=== PATIENT | male | born 1975 | race Hispanic/Latino ===

== ENCOUNTER 2019-03-27 23:58 | Emergency (ER) | payer SELFPAY ==
--- NOTE | 2019-03-28 01:12 | Emergency Department Report ---
ED General Adult HPI - General Chief complaint: Eye Problems Stated complaint: VISION PROBLEMS TROUBLE SWALLING BP Time Seen by Provider: 03/28/19 01:02 Source: patient Mode of arrival: Ambulatory Limitations: No Limitations - History of Present Illness Initial comments: Patient is 43 years old male with history of hypertension, on lisinopril 10 mg. Patient presented to the ER, accompanied by his . The patient stated that he had an episode of blurry vision happened tonight. he stated that for the last 2 weeks he has been complaining of generalized weakness, headache neck pain chest pain and shortness of breath. Patient denied any fever or chills. Patient found to have a blood pressure of 183/124 in triage. Patient currently denying any focal weakness, numbness or tingling sensation. Patient stated that sometimes he'll get very dizzy. - Related Data Allergies Allergy/AdvReac Type Severity Reaction Status Date / Time No Known Allergies Allergy Verified 03/28/19 00:11 ED Review of Systems ROS: Stated complaint: VISION PROBLEMS TROUBLE SWALLING BP Other details as noted in HPI Comment: All other systems reviewed and negative Constitutional: denies: chills, fever Respiratory: shortness of breath, SOB with exertion. denies: cough, orthopnea, SOB at rest Cardiovascular: chest pain. denies: palpitations Gastrointestinal: denies: abdominal pain, nausea, vomiting Musculoskeletal: denies: back pain ED Past Medical Hx - Past Medical History Previous Medical History?: Yes Hx Hypertension: Yes - Surgical History Past Surgical History?: No - Social History Smoking Status: Current Every Day Smoker Substance Use Type: Alcohol ED Physical Exam - General Limitations: No Limitations General appearance: alert, in no apparent distress - Head Head exam: Present: atraumatic, normocephalic, normal inspection - Eye Eye exam: Present: normal appearance, PERRL - ENT ENT exam: Present: normal exam, normal orophraynx, mucous membranes moist - Neck Neck exam: Present: normal inspection, full ROM. Absent: tenderness, meningismus, lymphadenopathy, thyromegaly - Respiratory Respiratory exam: Present: normal lung sounds bilaterally - Cardiovascular Cardiovascular Exam: Present: regular rate, normal rhythm, normal heart sounds - GI/Abdominal GI/Abdominal exam: Present: soft, normal bowel sounds. Absent: distended, tenderness, guarding, rebound, rigid, organomegaly, mass, bruit, pulsatile mass, hernia - Extremities Exam Extremities exam: Present: normal inspection, full ROM, normal capillary refill. Absent: pedal edema, calf tenderness - Back Exam Back exam: Present: normal inspection, full ROM. Absent: CVA tenderness (R), CVA tenderness (L), muscle spasm, paraspinal tenderness, vertebral tenderness, rash noted - Neurological Exam Neurological exam: Present: alert, oriented X3, CN II-XII intact, normal gait, reflexes normal. Absent: motor sensory deficit - Psychiatric Psychiatric exam: Present: normal mood - Skin Skin exam: Present: warm, intact, normal color ED Course Vital Signs 03/27/19 03/27/19 03/28/19 21:27 21:30 00:05 Temperature 97.6 F Pulse Rate 56 L 58 L 116 H Respiratory 17 17 18 Rate Blood Pressure 142/67 142/67 160/100 Blood Pressure [Left] O2 Sat by Pulse 97 97 99 Oximetry 03/28/19 03/28/19 03/28/19 01:26 01:30 01:31 Temperature Pulse Rate 97 H 90 Respiratory 15 20 Rate Blood Pressure 130/73 154/103 Blood Pressure 154/103 [Left] O2 Sat by Pulse 98 98 96 Oximetry 03/28/19 03/28/19 03/28/19 01:46 02:00 02:16 Temperature Pulse Rate 90 Respiratory 19 22 Rate Blood Pressure 154/103 165/124 171/120 Blood Pressure [Left] O2 Sat by Pulse 97 97 Oximetry 03/28/19 03/28/19 03/28/19 02:30 02:46 03:00 Temperature Pulse Rate 113 H Respiratory 17 Rate Blood Pressure 171/120 171/120 147/104 Blood Pressure [Left] O2 Sat by Pulse 97 98 98 Oximetry ED Medical Decision Making - Lab Data Result diagrams: 03/28/19 01:09 03/28/19 01:09 - EKG Data -: EKG Interpreted by La - Radiology Data Radiology results: report reviewed - Medical Decision Making Patient is 43 years old male with history of hypertension, on lisinopril 10 mg. Patient presented to the ER, accompanied by his . The patient stated that he had an episode of blurry vision happened tonight. he stated that for the last 2 weeks he has been complaining of generalized weakness, headache neck pain chest pain and shortness of breath. Patient denied any fever or chills. Patient found to have a blood pressure of 183/124 in triage. Patient currently denying any focal weakness, numbness or tingling sensation. Patient stated that sometimes he'll get very dizzy. Patient received hydralazine 20 mg IV. Blood pressure significantly improved patient stated that he is feeling much better. CT brain is negative for acute finding chest x-ray is unremarkable. Labs reviewed that is unremarkable. I believe the patient's symptom is most likely due to increased blood pressure. Will increase patient lisinopril to 40 mg and add hydrochlorothiazide 25 mg. Patient was given [facility] to follow-up in the next 2-3 days and informed to return to the ER if symptoms are not improved. Critical care attestation.: If time is entered above; I have spent that time in minutes in the direct care of this critically ill patient, excluding procedure time. ED Disposition Clinical Impression: Dizziness, Malignant hypertension Disposition: DC-01 TO HOME OR SELFCARE Is pt being admited?: No Condition: Stable Instructions: Hypertension (ED) Referrals: JALIL RODAS MD [Primary Care Provider] - 3-5 Days
[2019-03-28 01:23] LABS: Basophils % (Auto) 0.5 % (0.0-1.8); Eosinophils % (Auto) 0.4 % (0.0-4.3); Hematocrit 41.2 % (35.5-45.6); Hemoglobin 14.1 gm/dl (11.8-15.2); Lymphocytes # (Auto) 2.1 K/mm3 (1.2-5.4); Lymphocytes % (Auto) 28.7 % (13.4-35.0); Mean Corpuscular HGB Conc 34 % (32-34); Mean Corpuscular Volume 90 fl (84-94); Monocytes # (Auto) 0.7 K/mm3 (0.0-0.8); Monocytes % (Auto) 10.1 % (0.0-7.3); Platelet Count 233 K/mm3 (140-440); Red Blood Count 4.56 M/mm3 (3.65-5.03); Red Cell Distribution Width 13.4 % (13.2-15.2)
[2019-03-28 01:37] LABS: Thrombin Time 16.9 Sec. (15.1-19.6)
[2019-03-28 01:44] LABS: BUN/Creatinine Ratio 14; Blood Urea Nitrogen 17 mg/dL (9-20); Calcium 8.9 mg/dL (8.4-10.2); Hemolysis Index 29
--- NOTE | 2019-03-28 01:45 | Cat Scan Report ---
CT HEAD WITHOUT CONTRAST INDICATION : Neuro deficits <6hrs or sx present upon awakening. Loss of vision for 1 hour. TECHNIQUE: Axial, coronal and sagittal CT imaging was performed from the skull apex through the skul l base without contrast. All CT scans at this location are performed using CT dose reduction for ALA RA by means of automated exposure control. COMPARISON: None available. FINDINGS: PARENCHYMA: No mass, midline shift, hemorrhage, extraaxial collection or acute territorial infarctio n. VENTRICLES: Symmetric and normal in size. SOFT TISSUES: Soft tissues including the orbits appear normal. BONES: No acute osseous abnormality. SINUSES: No significant abnormality. ADDITIONAL FINDINGS: None. IMPRESSION: No acute abnormality. Signer Name: Zachary Newton MD Signed: 03/28/2019 1:41 AM Workstation Name: [id number]
--- NOTE | 2019-03-28 01:46 | XRay Report ---
CHEST 1 VIEW 03/28/2019 1:26 AM INDICATION / CLINICAL INFORMATION: sob. COMPARISON: None available. FINDINGS: SUPPORT DEVICES: None. HEART / MEDIASTINUM: No significant abnormality. LUNGS / PLEURA: No significant pulmonary or pleural abnormality. No pneumothorax. ADDITIONAL FINDINGS: No significant additional findings. IMPRESSION: No acute findings. Signer Name: Zachary Newton MD Signed: 03/28/2019 1:41 AM Workstation Name: [id number]
[2019-03-28 01:54] LABS: Alanine Aminotransferase 26 units/L (7-56); Albumin 4.2 g/dL (3.9-5)
[2019-03-28 02:09] LABS: Bilirubin,Direct < 0.2 mg/dL (0-0.2)
[2019-03-28] MEDS ORDERED: APRESOLINE ONE (02:14)
[2019-03-28] MEDS ORDERED: APRESOLINE IV ONE (02:34)
[2019-03-28 03:07] VITALS: BP 147/104
== END 2019-03-28 04:31 | disposition home or self-care (01) ==
LOC: ED 23:58
DX: I10 Essential (primary) hypertension (principal); R42 Dizziness and giddiness; F17.200 Nicotine dependence, unspecified, uncomplicated
CPT/HCPCS: 36415; 70450; 71045; 80048; 80076; 83880; 84484; 85025; 85610; 85670; 85730; 93005; 93010; 96374; 99285; J0360